=== PATIENT | male | born 1940 | race Hispanic/Latino ===

== ENCOUNTER 2019-03-03 09:30 | Inpatient (IN) | payer MEDICARE ==
[~2019-03-03] VITALS: Ht 170.2 cm; Wt 74.8 kg
[2019-03-03 10:35] VITALS: BP 188/86
[2019-03-03 10:48] LABS: BASOPHILS % (AUTO) 0.8 % (0.0-5.0); EOSINOPHILS % (AUTO) 1.6 % (0.0-8.0); HEMATOCRIT 45.8 % (42-54); LYMPHOCYTES % (AUTO) 21.8 % (21.0-51.0); MEAN CORPUSCULAR HEMOGLOBIN 32.3 pg (27.0-33.0); MEAN CORPUSCULAR HGB CONC 34.5 g/dL (32.0-36.0); MEAN CORPUSCULAR VOLUME 93.8 fL (79-99); MONOCYTES % (AUTO) 7.8 % (3.0-13.0); PLATELET COUNT (AUTO) 307 K/uL (130-400); RED BLOOD CELL COUNT(AUTO) 4.89 MIL/uL (4.50-6.20); RED CELL DISTRIBUTION WIDTH 13.2 % (11.0-15.5); WHITE BLOOD COUNT (AUTO) 6.5 K/uL (4.8-10.8)
[2019-03-03 10:54] LABS: POTASSIUM 3.9 mmol/L (3.5-5.1)
[2019-03-08] VITALS (21 sets, daily range): BP systolic 122–173; BP diastolic 55–96
[2019-03-08] MEDS ORDERED: LACTATED RINGERS 1000ML 1,000 ML IV ONE (06:58)
[2019-03-08] MEDS ORDERED: ROCURONIUM 10MG/1ML SYR 10 MG/ML ML ONE (07:57)
[2019-03-08] MEDS ORDERED: MIDAZOLAM HCL 1 MG/ML 2ML VIAL ONE (07:57)
[2019-03-08] MEDS ORDERED: FENTANYL CITRATE PF 50 MCG/1 ML 5ML AMP IV ONE (07:57)
[2019-03-08] MEDS ORDERED: BUPIVACAINE/EPI/PF 0.25% 30ML VIAL IJ ONE (08:12)
[2019-03-08] MEDS ORDERED: DURAMORPH PF1 MG/ML 10ML AMP IV ONE (08:12)
[2019-03-08] MEDS ORDERED: BACITRACIN 50,000 UNIT VIAL ONE (08:13)
[2019-03-08] MEDS ORDERED: THROMBIN-JMI 20000 UNIT KIT TP ONE (08:13)
[2019-03-08] MEDS ORDERED: EPHEDRINE SULFATE 50 MG/ML AMPULE ONE (08:46)
[2019-03-08] MEDS ORDERED: DEXAMETHASONE SOD PHOSPHATE 10MG/ML 1ML VIAL ONE (08:47)
[2019-03-08] MEDS: CEFAZOLIN SODIUM 1 GM VIAL IVP PRN ×2 (09:00→09:46)
[2019-03-08] MEDS ORDERED: CARB1TAB42 PO (09:33)
[2019-03-08] MEDS ORDERED: LISI-613 PO (09:33)
[2019-03-08] MEDS ORDERED: RIVA1.5C6 PO (09:33)
[2019-03-08] MEDS ORDERED: GLYCOPYRROLATE 1 MG/5 ML SYRINGE ONE (11:00)
[2019-03-08] MEDS ORDERED: LACTATED RINGERS 1000ML 1,000 ML IV SCH (11:13)
[2019-03-08] MEDS ORDERED: SODIUM CHLORIDE 0.9% 10 ML VIAL IVP PRN (11:15)
[2019-03-08] MEDS ORDERED: MORPHINE SULFATE 2 MG/ML 1ML SYG IVP PRN (11:15)
[2019-03-08] MEDS ORDERED: PROMETHAZINE HCL 25 MG/ML 1ML AMPULE IM PRN (11:15)
[2019-03-08] MEDS: DEXAMETHASONE SOD PHOSPHATE 4 MG/ML 1ML VIAL IVP SCH ×2 (11:15→17:25)
[2019-03-08] MEDS ORDERED: HYDROCODONE/ACETAMINOPHEN 5/325 MG TAB PO PRN (11:15)
[2019-03-08] MEDS: CARBIDOPA/LEVODOPA ER 50-200 1 EACH TABLET.ER PO SCH ×2 (14:00→21:00)
[2019-03-08] MEDS: CEFAZOLIN SODIUM 1 GM VIAL IVP SCH ×2 (17:25→19:15)
--- NOTE | 2019-03-08 18:30 | NUR ---
PT AMBULATED WELL NO SIGNS OF DISTRESS NOTED DENIES ANY NUMBNESS
--- NOTE | 2019-03-08 20:00 | NUR ---
PT AMBULATED DOWN HALLWAY AND BACK WITH NO DIFFICULTIES
[2019-03-09] VITALS: BP 163/83
[2019-03-09] MEDS: DEXAMETHASONE SOD PHOSPHATE 4 MG/ML 1ML VIAL IVP SCH ×2 (00:29→05:08)
[2019-03-09 04:00] VITALS: BP 176/85
--- NOTE | 2019-03-09 05:15 | NUR ---
DC'D KATT DTV 1300
[2019-03-09 08:27] VITALS: BP 124/73
[2019-03-09] MEDS ORDERED: LISINOPRIL 20 MG TABLET PO SCH (09:00)
[2019-03-09] MEDS ORDERED: RIVASTIGMINE 1.5 MG PO SCH (09:00)
[2019-03-09] MEDS: CARBIDOPA/LEVODOPA ER 50-200 1 EACH TABLET.ER PO SCH (09:00)
--- NOTE | 2019-03-09 10:03 | NUR ---
DC PLAN VISITED WITH PATIENT. PATIENT LIVES WITH SPOUSE. INDEPENDENT ABLE TO PERFORM ADL'S. PATIENT HAS NO SERVICES OR DME'S. PER DR. AD [facility]. EMILY SIGNED FOR [facility] INFO SENT PENDING REP CALL BACK. Addendum: 03/09/19 at 1006 by SONALI NUNEZ RN CM Amended: Links added.
[2019-03-09] MEDS ORDERED: LACTATED RINGERS 1000ML 1,000 ML IV SCH (11:35)
[2019-03-09 11:37] VITALS: BP 133/73
[2019-03-09] MEDS ORDERED: SODIUM CHLORIDE 0.9% 10 ML VIAL IVP PRN (11:45)
[2019-03-09] MEDS ORDERED: HYDROCODONE/ACETAMINOPHEN 5/325 MG TAB PO PRN (11:45)
[2019-03-09] MEDS ORDERED: CEFAZOLIN SODIUM 1 GM VIAL IVP SCH (11:45)
[2019-03-09] MEDS ORDERED: MORPHINE SULFATE 2 MG/ML 1ML SYG IVP PRN (11:45)
[2019-03-09] MEDS ORDERED: DEXAMETHASONE SOD PHOSPHATE 4 MG/ML 1ML VIAL IVP SCH (11:45)
[2019-03-09] MEDS ORDERED: PROMETHAZINE HCL 25 MG/ML 1ML AMPULE IM PRN (11:45)
--- NOTE | 2019-03-09 14:31 | NUR ---
PT'S DRESSING CHANGED NO SIGNS OF BLEEDING NOTED [facility] DRAIN D/C CATHETER TIP INTACT IV REMOVED CATHETER TIP INTACT PT DENIES SOB OR CHEST PAIN EXTENSIV EDUCATION GIVEN AND DR. DUONG'S ORDERS GIVEN WELL RX AND FU APPT.
== END 2019-03-09 14:57 | disposition home health service (06) | DRG 517 ==
LOC: EDSTATUS 11:30 → DAHIP 03-08 05:56 → 4BH 03-08 12:34
PROVIDERS: ADMIT Neurological Surgery; ATTEND Neurological Surgery
PROC: 4A11X4G Monitoring of Peripheral Nervous Electrical Activity, Intraoperative, External Approach (ICD-10-PCS; 2019-03-08)
PROC: 01NB0ZZ Release Lumbar Nerve, Open Approach (ICD-10-PCS; principal; 2019-03-08 08:30)
PROC: 01NR0ZZ Release Sacral Nerve, Open Approach (ICD-10-PCS; 2019-03-08 08:30)
PROC: BR191ZZ Fluoroscopy of Lumbar Spine using Low Osmolar Contrast (ICD-10-PCS; 2019-03-08 08:30)
PROC: BR1B1ZZ Fluoroscopy of Lumbosacral Joint using Low Osmolar Contrast (ICD-10-PCS; 2019-03-08 08:30)
DX: M48.061 Spinal stenosis, lumbar region without neurogenic claudication (principal); I10 Essential (primary) hypertension; G20 Parkinson's disease
CPT/HCPCS: 36415; 72020; 80048; 85025; A4344; G0378; J0690; J1100; J2250; J2274; J3010; J3490; J7030; J7120